=== PATIENT | female | born 1985 | race Caucasian/White ===

== ENCOUNTER → 2016-05-06 | Outpatient (CLI) | payer BC ==
[~2016-05-06] MED LIST: MTR600X PO; OMEG10007 PO; PRENTAB26 PO
[2016-05-10 09:31] LABS: GLIADIN DEAMIDATED IgA AB >100 UNITS (<20); GLIADIN DEAMIDATED IgG AB >100 UNITS (<20); RETICULIN IgA AB Positive (Negative)
== END | disposition home or self-care (01) ==
LOC: C.LABBC 11:38
PROVIDERS: ATTEND Family Medicine
DX: D50.9 Iron deficiency anemia, unspecified (principal)

== ENCOUNTER → 2016-06-30 | Outpatient (CLI) | payer BC | END | disposition home or self-care (01) | LOC: C.MAMM 15:32 | PROVIDERS: ATTEND Family Medicine | DX: D50.9 Iron deficiency anemia, unspecified (principal); K90.0 Celiac disease; M85.88 Other specified disorders of bone density and structure, other site; M85.851 Other specified disorders of bone density and structure, right thigh; M85.852 Other specified disorders of bone density and structure, left thigh ==

== ENCOUNTER → 2016-09-22 | Outpatient (CLI) | payer BC ==
[2016-09-22 12:20] LABS: BASO % 0.4 %; BASO ABS # 0.02 K/uL (0-0.2); COMPLETE YES; EOS % 7.8 %; HEMATOCRIT 39.4 % (37-47); LYMPH ABS # 1.71 K/uL (1.2-3.4); MEAN CELL VOLUME 90.2 fL (80-100); MEAN CORPUSCULAR HEMOGLOBIN 29.3 pg (25-34); MEAN CORPUSCULAR HGB CONC 32.5 g/dl (32-36); MEAN PLATELET VOLUME 10.1 fL (7.4-10.4); MONO % 6.2 %; NEUT % 51.6 %; PLATELET COUNT 231 K/uL (130-400); RED BLOOD COUNT 4.37 M/uL (4.2-5.4); WHITE BLOOD COUNT 5.03 K/uL (4.8-10.8)
[2016-09-22 13:01] LABS: ALT/SGPT 25 U/L (12-78); AST/SGOT 11 U/L (15-37); BLOOD UREA NITROGEN 14 mg/dl (7-18); CALCIUM 8.5 mg/dl (8.5-10.1); CARBON DIOXIDE 28 mmol/L (21-32); CHLORIDE 106 mmol/L (98-107); CREATININE 0.65 mg/dl (0.60-1.20); GLUCOSE 80 mg/dl (70-99); POTASSIUM 4.1 mmol/L (3.5-5.1); SODIUM 138 mmol/L (136-145)
[2016-09-22 13:04] LABS: ALB/GLOB RATIO 1.1 (0.9-2); ALKALINE PHOSPHATASE 77 U/L (45-117); FERRITIN 43.9 ng/ml (8.0-388.0); TOTAL IRON BINDING CAPACITY 291 mcg/dl (250-450)
[2016-09-25 16:30] LABS: VIT E ALPHA-TOCOPHEROL 13.2 mg/L (5.7-19.9); VIT E BETA&GAMMA-TOCOPHEROL <1.0 mg/L (<=4.3); VITAMIN A** TC 921X 46 mcg/dL (38-98)
== END | disposition home or self-care (01) ==
LOC: C.LAB1850 10:04
PROVIDERS: ATTEND Internal Medicine
DX: K90.0 Celiac disease (principal)

== ENCOUNTER → 2016-09-29 | Outpatient (CLI) | payer BC ==
--- NOTE | 2016-09-29 15:58 | MAMMOGRAPHY REPORT ---
UNILATERAL LEFT DIGITAL DIAGNOSTIC MAMMOGRAM TOMOSYNTHESIS WITH CAD AND TARGETED LEFT ULTRASOUND: 09/12 CLINICAL HISTORY: 30-year-old lactating woman with a palpable lump in the lower inner quadrant of the left breast, for approximately one and a half months. She describes it as dime-sized. No skin eryt cameron or blood-tinged milk. No family history of breast cancer. TECHNIQUE: Left CC and MLO 2-D digital and tomosynthesis images were obtained. Current study was al so evaluated with a Computer Aided Detection (CAD) system. COMPARISON: Comparison is made to exams dated: 09/29/2016 ultrasound - [facility] a nd 01/18/2008. BREAST COMPOSITION: The tissue of the left breast is extremely dense, which lowers the sensitivity o f mammography. FINDINGS: There is diffuse density of the left breast, compatible with lactational change. A triangu lar skin palpable marker overlies the lower inner middle one third of the breast. There are a few sc attered benign punctate microcalcifications. A possible lobulated 11 x 6 mm mass versus breast lobul e is seen in the lateral anterior left breast on the CC view, 3.6 cm distal to the nipple. There is no evidence of a spiculated or irregular mass, focal area of architectural distortion or suspicious m icrocalcifications. Targeted ultrasound was performed in the area of palpable lump pointed out by the patient (8:00 left breast, 4 cm from the nipple), and also throughout the lateral left breast. In the area of palpable concern, normal lactational changes are evident. There is no discrete solid or cystic mass. Through out the lateral left breast, no suspicious solid or cystic mass is seen. Prominent lactational espinoza es are seen in the 3:00 periareolar axis. A benign lymph node is seen in the far lateral 3:00 axis o f the left breast. IMPRESSION: ACR-BI-RADS CATEGORY 3: PROBABLY BENIGN, TARGETED ULTRASOUND ACR-BI-RADS CATEGORY 3: PRO BABLY BENIGN 1. There is no suspicious mammographic or sonographic abnormality or evidence of malignancy correlat ing with the palpable lump in the 8:00 right breast. Therefore, clinical follow-up is recommended, a s biopsy of a clinically suspicious mass should not be precluded by negative imaging. 2. There is a benign appearing lobulated and circumscribed 11 mm mass versus lactational change in t he lateral anterior left breast, only seen on the CC view, without suspicious sonographic correlate. Nevertheless, a short interval follow-up diagnostic left mammogram and possible ultrasound is recomm ended to ensure stability in 6 months. These results and recommendations were discussed with the patient at the time of the exam. Approximately 10% of breast cancers are not detected with mammography. A negative mammographic report should not delay biopsy if a clinically suggestive mass is present. Cierra Lombardo M.D. ay/:09/29/2016 14:30:06 Teenage Babysitter: Lakia Washington, [facility] letter sent: Follow Up Recommended 3 BI-RADS Code: ACR-BI-RADS Category 3: Probably Benign Ultrasound BI-RADS: ACR-BI-RADS Category 3: Pr obably Benign
== END | disposition home or self-care (01) ==
LOC: C.MAMM 13:03
PROVIDERS: ATTEND Obstetrics & Gynecology
DX: N63 Unspecified lump in breast (principal)

== ENCOUNTER → 2016-12-02 | Outpatient (CLI) | payer BC | END | disposition home or self-care (01) | LOC: C.PAPS 09:11 | PROVIDERS: ATTEND Obstetrics & Gynecology | DX: Z01.419 Encounter for gynecological examination (general) (routine) without abnormal findings (principal); N81.11 Cystocele, midline ==

== ENCOUNTER → 2016-12-23 | Outpatient (CLI) | payer BC ==
--- NOTE | 2016-12-23 13:40 | MAMMOGRAPHY REPORT ---
ULTRASOUND OF RIGHT BREAST: 12/23/2016 CLINICAL HISTORY: 31-year-old woman presents for diagnostic evaluation of the right breast. She is c urrently lactating, and notices a wedge-shaped segment in the right upper outer quadrant that feels m ore hard before she nurses and less hard after she nurses but still persists. There is no overlying erythema, skin thickening or other abnormality. No family history of breast cancer. Patient reports she still occasionally feels the left breast lump which was previously worked up in [place] 2016. COMPARISON: Comparison is made to exams dated: 09/29/2016 mammogram, 09/29/2016 ultrasound - [facility], and 01/18/2008. FINDINGS: Targeted ultrasound was performed in the area of wedge-shaped hard area/thickening pointed out by the patient, within the 10:00 right breast, 5 cm from the nipple. Lactational changes eviden t within the breast tissue. However, no discrete solid or cystic mass is seen. Overall, no suspicio us sonographic abnormality. Additional ultrasound was performed in the area of previously identified lump in the left breast in t he medial aspect of the breast, and no discrete abnormality is seen. The lateral aspect of the left breast was also ultrasounded again to assess for the circumscribed possible mass seen on the 09/30/19 17 left CC mammogram (tomosynthesis slice 38) again, lactational changes evident within the breast ti ssue, but no suspicious solid or cystic mass is seen. IMPRESSION: ACR-BI-RADS CATEGORY 3: PROBABLY BENIGN - FOLLOW-UP RECOMMENDED 1. There is no targeted sonographic abnormality in the area of abnormality pointed out by the patien t, within the 10:00 right breast. This could simply represent a segment of lactational tissue that d oes not completely empty. For completeness sake diagnostic mammography was recommended given the age greater than 30, however the patient declined. Would recommend considering right mammography at the time of follow-up in the left breast in March 2017, to exclude the possibility of any suspicious c alcifications or architectural distortion, which may not necessarily be identified on ultrasound. 2. No discrete abnormality identified in the left breast in the area of mass in the medial breast or to correspond to a mammographic finding in the lateral breast. Again recommend a follow-up left beth osynthesis mammogram in March 2017 to ensure stability and/or resolution. We could also perform ri ght mammography at that time if the patient is amenable. These results and recommendations were discussed with the patient at the time of the exam. Cierra Lombardo M.D. ay/:12/23/2016 12:30:35 Circulation Representative: Dr. Cierra Lombardo, [facility] letter sent: Follow Up Recommended 3 BI-RADS Code: ACR-BI-RADS Category 3: Probably Benign
== END | disposition home or self-care (01) ==
LOC: C.MAMM 08:05
PROVIDERS: ATTEND Obstetrics & Gynecology
DX: N63.10 Unspecified lump in the right breast, unspecified quadrant (principal)

== ENCOUNTER → 2017-01-27 | Outpatient (CLI) | payer BC ==
[2017-01-27 16:41] LABS: BASO % 0.6 %; BASO ABS # 0.04 K/uL (0-0.2); COMPLETE YES; EOS % 4.8 %; HEMATOCRIT 37.3 % (37-47); IG% 0.1 %; LYMPH % 33.2 %; LYMPH ABS # 2.23 K/uL (1.2-3.4); MEAN CELL VOLUME 90.3 fL (80-100); MEAN CORPUSCULAR HEMOGLOBIN 30.5 pg (25-34); MEAN CORPUSCULAR HGB CONC 33.8 g/dl (32-36); MEAN PLATELET VOLUME 10.5 fL (7.4-10.4); MONO % 6.4 %; NEUT % 54.9 %; PLATELET COUNT 179 K/uL (130-400); RED BLOOD COUNT 4.13 M/uL (4.2-5.4); WHITE BLOOD COUNT 6.72 K/uL (4.8-10.8)
[2017-01-27 17:20] LABS: ALT/SGPT 24 U/L (12-78); BLOOD UREA NITROGEN 13 mg/dl (7-18); BUN/CREATININE RATIO 17.7 (10-20); CARBON DIOXIDE 28 mmol/L (21-32); CHLORIDE 103 mmol/L (98-107); CREATININE 0.74 mg/dl (0.60-1.20); GLUCOSE 81 mg/dl (70-99); POTASSIUM 3.9 mmol/L (3.5-5.1); SODIUM 138 mmol/L (136-145)
[2017-01-27 17:23] LABS: ALB/GLOB RATIO 1.1 (0.9-2); ALKALINE PHOSPHATASE 65 U/L (45-117); AST/SGOT 14 U/L (15-37)
== END | disposition home or self-care (01) ==
LOC: C.LAB1850 15:52
PROVIDERS: ATTEND Internal Medicine
DX: K90.0 Celiac disease (principal)

== ENCOUNTER → 2017-05-18 | Outpatient (CLI) | payer BC | END | disposition home or self-care (01) | LOC: C.LABPVFM 09:34 | PROVIDERS: ATTEND Family Medicine | DX: E28.2 Polycystic ovarian syndrome (principal) ==

== ENCOUNTER → 2017-05-19 | Outpatient (CLI) | payer BC | END | disposition home or self-care (01) | LOC: C.LAB 11:29 | PROVIDERS: ATTEND Nutritionist | DX: Z91.018 Allergy to other foods (principal) ==

== ENCOUNTER → 2017-07-27 | Outpatient (CLI) | payer BC ==
[2017-07-27 17:37] LABS: BASO ABS # 0.05 K/uL (0-0.2); EOS % 3.9 %; EOS ABS # 0.19 K/uL (0-0.5); HEMATOCRIT 36.7 % (37-47); HEMOGLOBIN 12.6 g/dL (12.0-16.0); IG# 0.01 K/uL (0.00-0.02); LYMPH ABS # 1.52 K/uL (1.2-3.4); MEAN CELL VOLUME 90.8 fL (80-100); MEAN CORPUSCULAR HEMOGLOBIN 31.2 pg (25-34); MEAN CORPUSCULAR HGB CONC 34.3 g/dl (32-36); MEAN PLATELET VOLUME 10.2 fL (7.4-10.4); MONO % 5.5 %; MONO ABS # 0.27 K/uL (0.11-0.59); NEUT % 58.4 %; NEUT ABS # 2.87 K/uL (1.4-6.5); PLATELET COUNT 193 K/uL (130-400); RED CELL DISTRIBUTION WIDTH CV 12.3 % (11.5-14.5); WHITE BLOOD COUNT 4.91 K/uL (4.8-10.8)
[2017-07-27 17:49] LABS: ALBUMIN 4.1 gm/dl (3.4-5.0); ALT/SGPT 24 U/L (12-78); AST/SGOT 15 U/L (15-37); BLOOD UREA NITROGEN 11 mg/dl (7-18); CALCIUM 8.2 mg/dl (8.5-10.1); CARBON DIOXIDE 27 mmol/L (21-32); CREATININE 0.93 mg/dl (0.60-1.20); GLUCOSE 79 mg/dl (70-99); POTASSIUM 3.9 mmol/L (3.5-5.1); SODIUM 136 mmol/L (136-145)
[2017-07-27 17:51] LABS: ALKALINE PHOSPHATASE 62 U/L (45-117); TOTAL PROTEIN 8.1 gm/dl (6.4-8.2)
== END | disposition home or self-care (01) ==
LOC: C.LABBC 15:18
PROVIDERS: ATTEND Internal Medicine
DX: K90.0 Celiac disease (principal); R74.8 Abnormal levels of other serum enzymes